=== PATIENT | male | born 1985 | race Two or more races ===

== ENCOUNTER 2017-01-31 01:09 | Emergency (ER) | payer SELFPAY ==
[~2017-01-31] VITALS: Ht 172.7 cm; Wt 68.0 kg
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
--- NOTE | 2017-01-31 01:17 | NUR ---
DR CLOUD AT BEDSIDE FOR EVAL.
[2017-01-31] MEDS ORDERED: CHLORDIAZEPOXIDE HCL 25 MG CAPSULE PO ONE (01:30)
[2017-01-31] MEDS ORDERED: CHLORDIAZEPOXIDE HCL 25 MG CAPSULE ONE (01:33)
[2017-01-31 06:09] VITALS: BP 122/63
--- NOTE | 2017-01-31 06:09 | NUR ---
VSS. Patient discharged to home in stable condition. Written and verbal after care instructions given. Patient verbalizes understanding of instruction. Patient is ambulatory with steady gait.
== END 2017-01-31 06:10 | disposition home or self-care (01) ==
LOC: ER 01:12
DX: F10.129 Alcohol abuse with intoxication, unspecified (principal)
CPT/HCPCS: 99283; A4606; Z7610

== ENCOUNTER 2017-12-06 15:18 | Emergency (ER) | payer OTHER ==
[~2017-12-06] VITALS: Ht 185.4 cm; Wt 78.0 kg
[2017-12-06] MEDS ORDERED: IV NS 0.9% 1,000 ML BAG IV STA (15:36)
[2017-12-06 15:50] LABS: BASOPHILS % (AUTO) 0.9 % (0.0-2.0); HEMATOCRIT 44 % (39-51); HEMOGLOBIN 15.2 g/dL (13.5-17.5); LYMPHOCYTES # (AUTO) 1.2 /CMM (0.8-4.8); LYMPHOCYTES % (AUTO) 33.5 % (20.0-44.0); MEAN CORPUSCULAR HGB CONC 35 g/dl (31.0-36.0); MEAN CORPUSCULAR VOLUME 95 fL (80-96); MONOCYTES # (AUTO) 0.4 /CMM (0.1-1.30); NEUTROPHILS # (AUTO) 2.1 /CMM (1.8-8.9); NEUTROPHILS % (AUTO) 53.6 % (43.0-81.0); PLATELET COUNT (AUTO) 169 /CMM (150-450); RDW COEFFICIENT OF VARIATION 13.2 (11.5-15.0); RED BLOOD CELL COUNT(AUTO) 4.62 MIL/uL (4.5-6.0); WHITE BLOOD COUNT (AUTO) 3.7 K/uL (4.3-11.0)
[2017-12-06 16:20] LABS: ALBUMIN 3.4 g/dL (3.4-5.0); BILIRUBIN,TOTAL 0.7 mg/dL (0.2-1.0); CALCIUM, SERUM 7.9 mg/dL (8.5-10.1); CREATININE 0.9 mg/dL (0.6-1.3); POTASSIUM 3.4 mmol/L (3.5-5.1); TOTAL PROTEIN, SERUM 6.7 g/dL (6.4-8.2)
[2017-12-06] MEDS ORDERED: POTASSIUM CHLORIDE 20 MEQ TAB.PRT.SR PO STA (16:33)
[2017-12-06] MEDS ORDERED: POTASSIUM CHLORIDE 20 MEQ TAB.PRT.SR PO ONE (16:39)
[2017-12-06 16:40] VITALS: BP 134/65
== END 2017-12-06 16:42 | disposition home or self-care (01) ==
LOC: ER 15:19
DX: F10.10 Alcohol abuse, uncomplicated (principal); Z60.2 Problems related to living alone
CPT/HCPCS: 36415; 80053-TC; 83690-TC; 85025-TC; A4606; J7030; Z7610

== ENCOUNTER 2017-12-13 09:42 | Emergency (ER) | payer OTHER ==
[~2017-12-13] VITALS: Ht 185.4 cm; Wt 79.4 kg
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
--- NOTE | 2017-12-13 10:10 | NUR ---
PATIENT PLACED ON 3L O2 VIA NC D/T OXYGEN SATURATION OF 88%
--- NOTE | 2017-12-13 12:40 | NUR ---
PATIENT TAKEN TO CT VIA STRETCHER.
--- NOTE | 2017-12-13 12:54 | NUR ---
PATIENT RETURNED FROM CT IN STABLE CONDITION.
--- NOTE | 2017-12-13 13:15 | NUR ---
PATIENT ATTEMPTED TO AMBULATE, BUT VERY UNBALANCED, NEARLY FELL SIDEWAYS. PATIENT ASSISTED BACK TO BED FOR FURTHER MONITORING.
--- NOTE | 2017-12-13 14:05 | NUR ---
PATIENT'S MOTHER CALLED AND STATED SHE WILL BE IN TO OFFICE RN PATIENT LATER TODAY.
--- NOTE | 2017-12-13 14:52 | NUR ---
DISREGARD VITAL SIGNS DOCUMENTED UNDER NANCY RIVERO, DONE BY ACCIDENT.
--- NOTE | 2017-12-13 18:26 | NUR ---
PATIENT IS A/OX 4 AT THIS TIME, AMBULATING INDEPENDENTLY WITH STEADY GAIT. DRINKING FLUIDS WELL. CLEARED FOR DISCHARGE. Patient discharged to home in stable condition. Written and verbal after care instructions given. Patient verbalizes understanding of instruction.
[2017-12-13 18:27] VITALS: BP 126/71
== END 2017-12-13 18:28 | disposition home or self-care (01) ==
LOC: ER 09:43
DX: S00.83XA Contusion of other part of head, initial encounter (principal); S00.81XA Abrasion of other part of head, initial encounter; F10.10 Alcohol abuse, uncomplicated; X58.XXXA Exposure to other specified factors, initial encounter; Y93.89 Activity, other specified; Y92.480 Sidewalk as the place of occurrence of the external cause; Y99.8 Other external cause status
CPT/HCPCS: 70450; 99284; A4606; Z7610

== ENCOUNTER 2018-01-02 14:33 | Emergency (ER) | payer OTHER ==
[~2018-01-02] VITALS: Ht 182.9 cm; Wt 81.6 kg
--- NOTE | 2018-01-02 14:35 | NUR ---
AAOX3, [id number] FROM [facility], PT WAS FALLING ASLEEP AND SLURRING DURING HIS CLASS. PT SAID HE HAD TEQUILA THIS AM. BS-108. RR IS EVEN AND UNLABORED WITH NAD NOTED. SKIN IS WARM AND DRY. AWAITING MD FOR EVAL.
[2018-01-02 15:21] LABS: BASOPHILS % (AUTO) 0.9 % (0.0-2.0); EOSINOPHILS % (AUTO) 1.9 % (0.0-6.0); HEMATOCRIT 40 % (39-51); HEMOGLOBIN 13.6 g/dL (13.5-17.5); LYMPHOCYTES # (AUTO) 1.4 /CMM (0.8-4.8); LYMPHOCYTES % (AUTO) 45.8 % (20.0-44.0); MEAN CORPUSCULAR HGB CONC 34 g/dl (31.0-36.0); MEAN CORPUSCULAR VOLUME 97 fL (80-96); MONOCYTES # (AUTO) 0.3 /CMM (0.1-1.30); MONOCYTES % (AUTO) 9.1 % (2.0-12.0); NEUTROPHILS # (AUTO) 1.3 /CMM (1.8-8.9); NEUTROPHILS % (AUTO) 42.3 % (43.0-81.0); PLATELET COUNT (AUTO) 211 /CMM (150-450); RDW COEFFICIENT OF VARIATION 13.5 (11.5-15.0); WHITE BLOOD COUNT (AUTO) 3.1 K/uL (4.3-11.0)
[2018-01-02 15:30] LABS: CALCIUM, SERUM 8.1 mg/dL (8.5-10.1); CARBON DIOXIDE 28 mmol/L (21-32); CHLORIDE 105 mmol/L (98-107); CREATININE 0.7 mg/dL (0.6-1.3); GLUCOSE 94 mg/dL (74-106); POTASSIUM 3.1 mmol/L (3.5-5.1); SODIUM SERUM 145 mmol/L (136-145); UREA NITROGEN, BLOOD 14 mg/dL (7-18)
[2018-01-02 15:38] LABS: ALANINE AMINOTRANSFERASE 85 U/L (12-78); ALBUMIN 4.1 g/dL (3.4-5.0); ALCOHOL, BLOOD 487 mg/dL (0-0); ALKALINE PHOSPHATASE 63 U/L (46-116); ASPARTATE AMINOTRANSFERASE 100 U/L (15-37); BILIRUBIN,DIRECT 0.2 mg/dL (0.0-0.2); BILIRUBIN,TOTAL 0.4 mg/dL (0.2-1.0); TOTAL PROTEIN, SERUM 7.5 g/dL (6.4-8.2)
[2018-01-02 15:41] LABS: ACETAMINOPHEN < 10 ug/ml (10-30)
--- NOTE | 2018-01-02 16:30 | NUR ---
Patient is resting comfortably in bed with eyes closed. Easily aroused. VSS
--- NOTE | 2018-01-02 17:30 | NUR ---
Patient is resting comfortably in bed with eyes closed. Easily aroused. VSS
--- NOTE | 2018-01-02 19:04 | NUR ---
REPORT GIVEN TO KATYA RUTH FOR GO.
--- NOTE | 2018-01-02 19:05 | NUR ---
RECEIVED REPORT FROM KATYA MEDRANO FOR GO.
--- NOTE | 2018-01-02 19:45 | NUR ---
DR. LOPEZ AT BEDSIDE SPEAKING TO PT REGARDING RESULTS.
--- NOTE | 2018-01-02 19:51 | NUR ---
Patient discharged to home in stable condition. Written and verbal after care instructions given. Patient verbalizes understanding of instruction. ambulatory with a steady gait. instructed pt not to drive. pt verbalize understanding. pt aox4.
[2018-01-02 19:54] VITALS: BP 120/85
== END 2018-01-02 19:56 | disposition home or self-care (01) ==
LOC: ER 14:35
DX: F10.129 Alcohol abuse with intoxication, unspecified (principal); I10 Essential (primary) hypertension; E11.9 Type 2 diabetes mellitus without complications; G40.909 Epilepsy, unspecified, not intractable, without status epilepticus; Z91.14 Patient's other noncompliance with medication regimen; Z60.2 Problems related to living alone
CPT/HCPCS: 36415; 80048-TC; 80076-TC; 85025-TC; A4606; G0480; Z7610

== ENCOUNTER 2018-01-16 18:21 | Emergency (ER) | payer OTHER ==
[~2018-01-16] VITALS: Ht 180.3 cm; Wt 83.9 kg
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
--- NOTE | 2018-01-16 18:29 | NUR ---
DR GILLIAM AT BS FOR EVAL.
[2018-01-16 18:57] LABS: BASOPHILS % (AUTO) 0.7 % (0.0-2.0); EOSINOPHILS % (AUTO) 1.2 % (0.0-6.0); HEMATOCRIT 41 % (39-51); LYMPHOCYTES # (AUTO) 0.6 /CMM (0.8-4.8); LYMPHOCYTES % (AUTO) 21.4 % (20.0-44.0); MEAN CORPUSCULAR HGB CONC 35 g/dl (31.0-36.0); MEAN CORPUSCULAR VOLUME 98 fL (80-96); MONOCYTES # (AUTO) 0.3 /CMM (0.1-1.30); MONOCYTES % (AUTO) 11.4 % (2.0-12.0); NEUTROPHILS # (AUTO) 1.9 /CMM (1.8-8.9); NEUTROPHILS % (AUTO) 65.3 % (43.0-81.0); PLATELET COUNT (AUTO) 139 /CMM (150-450); RDW COEFFICIENT OF VARIATION 13.1 (11.5-15.0); RED BLOOD CELL COUNT(AUTO) 4.14 MIL/uL (4.5-6.0); WHITE BLOOD COUNT (AUTO) 2.8 K/uL (4.3-11.0)
[2018-01-16] MEDS ORDERED: IV NS 0.9% 500 ML BAG IV ONE (19:00)
--- NOTE | 2018-01-16 19:01 | NUR ---
RECEIVED REPORT FROM KATYA MEDRANO FOR GO.
[2018-01-16 19:09] LABS: CARBON DIOXIDE 25 mmol/L (21-32); CHLORIDE 100 mmol/L (98-107); CREATININE 0.9 mg/dL (0.6-1.3); GLUCOSE 105 mg/dL (74-106); POTASSIUM 4.1 mmol/L (3.5-5.1); SODIUM SERUM 136 mmol/L (136-145); UREA NITROGEN, BLOOD 11 mg/dL (7-18)
[2018-01-16 19:18] LABS: ALANINE AMINOTRANSFERASE 79 U/L (12-78); ALCOHOL, BLOOD < 3 mg/dL (0-0); ALKALINE PHOSPHATASE 58 U/L (46-116); ASPARTATE AMINOTRANSFERASE 92 U/L (15-37); BILIRUBIN,DIRECT 0.3 mg/dL (0.0-0.2); BILIRUBIN,TOTAL 0.9 mg/dL (0.2-1.0); TOTAL PROTEIN, SERUM 7.4 g/dL (6.4-8.2)
--- NOTE | 2018-01-16 19:20 | NUR ---
URINE COLLECTED. CALLED LAB FOR COOK VACUUM KETTLE.
--- NOTE | 2018-01-16 21:06 | NUR ---
IV removed. Catheter intact and site benign. Pressure and 4x4 applied to site. No bleeding noted. Patient discharged to home in stable condition. Written and verbal after care instructions given. Patient verbalizes understanding of instruction. ambulatory with a steady gait. instructed pt not to drive. pt verbalize understanding. noted no active siezure druing shift.
[2018-01-16 21:11] VITALS: BP 124/68
== END 2018-01-16 21:13 | disposition home or self-care (01) ==
LOC: ER 18:23
DX: G40.909 Epilepsy, unspecified, not intractable, without status epilepticus (principal); Z60.2 Problems related to living alone
CPT/HCPCS: 36415; 80048-TC; 80076-TC; 80305; 85025-TC; A4606; G0480; J7040; Z7610

== ENCOUNTER 2019-01-26 15:28 | Emergency (ER) | payer OTHER ==
[~2019-01-26] VITALS: Ht 177.8 cm; Wt 77.6 kg
[2019-01-26 15:37] VITALS: BP 140/98
[2019-01-26] MEDS ORDERED: LORAZEPAM 1 MG TABLET PO ONE (16:00)
[2019-01-26] MEDS ORDERED: LORAZEPAM 1 MG TABLET ONE (16:01)
[2019-01-26 16:36] LABS: POTASSIUM 3.4 mmol/L (3.5-5.1)
[2019-01-26] MEDS ORDERED: POTASSIUM CHLORIDE 20 MEQ TAB.PRT.SR PO ONE ×2 (17:00→17:08)
== END 2019-01-26 17:13 | disposition home or self-care (01) ==
LOC: ER 15:30
DX: R56.9 Unspecified convulsions (principal); F10.20 Alcohol dependence, uncomplicated; Z60.2 Problems related to living alone; Y90.9 Presence of alcohol in blood, level not specified
CPT/HCPCS: 36415; 80048-TC